=== PATIENT | female | born 1960 ===

== ENCOUNTER 2017-06-22 15:25 | Emergency (ER) | payer MEDICAID, OTHER ==
[2017-06-22 15:53] VITALS: BP 119/79; PULSE 65; RESP 16; TEMP 98.6; O2SAT 99
--- NOTE | 2017-06-22 16:51 | C.PDOC ---
History Of Present Illness 57 y/o female presents to the ER complaining of an itching rash around the right eye which has been present for the past 2 days. Patient denies having any eye pain, visual changes, and trauma. Patient states that she went to the pharmacy and she brought antibiotics and steroid eye drops without improvement. Patient denies having any other complaints. Time Seen by Provider: 06/22/17 16:17 Chief Complaint (Nursing): Eye Problem History Per: Patient History/Exam Limitations: no limitations Onset/Duration Of Symptoms: Days Current Symptoms Are (Timing): Still Present Severity: Moderate Past Medical History Reviewed: Historical Data, Nursing Documentation, Vital Signs Vital Signs: Last Vital Signs Temp 98.6 F 06/22/17 15:50 Pulse 65 06/22/17 15:50 Resp 16 06/22/17 15:50 BP 119/79 06/22/17 15:50 Pulse Ox 99 06/22/17 19:10 - Medical History PMH: No Chronic Diseases Surgical History: No Surg Hx Family History: States: No Known Family Hx - Social History Hx Alcohol Use: No Hx Substance Use: No - Immunization History Hx Tetanus Toxoid Vaccination: No Hx Influenza Vaccination: No Hx Pneumococcal Vaccination: No Review Of Systems Except As Marked, All Systems Reviewed And Found Negative. Eyes: Negative for: Pain, Vision Change Skin: Positive for: Rash (around right eye) Physical Exam - Physical Exam Appears: Non-toxic, No Acute Distress, Other (comfortable) Skin: Normal Color, Warm, No Rash Head: Atraumatic, Normacephalic Eye(s): bilateral: Normal Inspection, PERRL, right: Other (mild erythema on right periorbital - dry- scaly appearance, no swelling, nontender, no pain w/ extraocular movements, no scleral injection, no eye discharge) Ear(s): Bilateral: Normal Nose: Normal Oral Mucosa: Moist Neck: Supple Chest: Symmetrical Cardiovascular: Rhythm Regular Respiratory: Normal Breath Sounds, No Accessory Muscle Use, No Rales, No Rhonchi , No Wheezing Extremity: Normal ROM Neurological/Psych: Oriented x3, Normal Speech, Normal Cognition, Normal Motor, Normal Sensation ED Course And Treatment O2 Sat by Pulse Oximetry: 99 (RA) Pulse Ox Interpretation: Normal Progress Note: Patient given steroid cream and discharged. Disposition Counseled Patient/Family Regarding: Diagnosis, Need For Followup - Disposition Referrals: Marie Wiseman MD [Non-Staff] - Disposition: HOME/ ROUTINE Disposition Time: 16:50 Condition: STABLE Prescriptions: Hydrocortisone 0.5% CREAM [Cortizone 0.5% CREAM] 1 applic EXT BID #1 tube Instructions: Contact Dermatitis (ED) Forms: [facility] [employer] (Slovenian) Print Language: PALAUAN - Clinical Impression Clinical Impression: Periorbital dermatitis - Scribe Statement The provider has reviewed the documentation as recorded by the Jean Marie Jones Provider Attestation: All medical record entries made by the Jean Marie were at my direction and personally dictated by me. I have reviewed the chart and agree that the record accurately reflects my personal performance of the history, physical exam, medical decision making, and the department course for this patient. I have also personally directed, reviewed, and agree with the discharge instructions and disposition.
== END 2017-06-22 17:09 | disposition home or self-care (01) ==
LOC: C.ER 15:25
DX: L30.9 Dermatitis, unspecified (principal)